=== PATIENT | female | born 1995 | race Caucasian/White ===

== ENCOUNTER 2018-04-08 02:09 | Emergency (ER) | payer BC ==
[~2018-04-08] VITALS: Ht 165.1 cm; Wt 63.6 kg
[2018-04-08 02:16] VITALS: TEMP 96.6
[2018-04-08] MEDS ORDERED: ZOLOFT 100MG100 MG PO (02:20)
[2018-04-08] MEDS ORDERED: XANAX 0.5MG0.5 MG PO (02:20)
[2018-04-08 02:38] LABS: HEMATOCRIT 44.1 % (37.0-47.0); HEMOGLOBIN 14.9 g/dl (12.5-16.0); MEAN CELL VOLUME 95 fl (80.0-100.0); MEAN CORPUSCULAR HEMOGLOBIN 32 pg (27.0-31.0); MEAN CORPUSCULAR HGB CONC 34 g/dl (33.0-37.0); MEAN PLATELET VOLUME 10.2 fl (7.4-10.4); PLATELET COUNT 263 K/mm3 (130-400); RED BLOOD COUNT 4.66 M/mm3 (4.10-5.30); REDCELL DISTRIBUTION WIDTH-CV 12.1 % (11.5-14.5)
[2018-04-08 02:48] LABS: ALBUMIN 5.2 gm/dL (3.5-5.0); BILIRUBIN,TOTAL 0.5 mg/dL (0.0-1.0); CALCIUM 10.3 mg/dL (8.4-10.2); CREATININE, serum 0.83 mg/dL (0.52-1.25); POTASSIUM 3.9 mmol/L (3.4-5.0)
[2018-04-08 03:02] LABS: BAND 6 % (0-10); NEUTROPHILS 64 % (42.0-75.2)
[2018-04-08 03:03] LABS: PLATELET ESTIMATE NORMAL (NORMAL)
[2018-04-08 03:07] LABS: LYMPHOCYTE 24 % (20.0-51.0)
[2018-04-08 04:30] LABS: COLLECTION METHOD CLEAN CATCH
[2018-04-08 04:39] LABS: MUCOUS Present /lpf; PH 5 (5-8); SQUAMOUS EPITHELIAL 0-2 /hpf; URINE APPEARANCE Clear; URINE BACTERIA Rare /hpf; URINE BILIRUBIN Negative (NEGATIVE); URINE BLOOD Negative (NEGATIVE); URINE COLOR Yellow; URINE GLUCOSE Negative (NEGATIVE); URINE KETONE Negative (NEGATIVE); URINE LEUKOCYTE ESTERASE Negative (NEGATIVE); URINE NITRATE Negative (NEGATIVE); URINE PROTEIN(semi-quant) 1+ (NEGATIVE); URINE RBC 0-2 /hpf; URINE UROBILINOGEN Negative (NEGATIVE)
[2018-04-08] MEDS ORDERED: ZOFRAN 4MG T4 MG/TAB PO (05:12)
[2018-04-08 05:17] VITALS: BP 108/70; PULSE 80
[2018-04-08 08:08] LABS: PATHOLOGY DIFF REVIEW OK
== END 2018-04-08 05:26 | disposition home or self-care (01) ==
LOC: COL.ER 02:09
PROVIDERS: Emergency Medicine
DX: S09.90XA Unspecified injury of head, initial encounter (principal); R11.2 Nausea with vomiting, unspecified; R19.7 Diarrhea, unspecified; R55 Syncope and collapse; F32.9 Major depressive disorder, single episode, unspecified; F41.9 Anxiety disorder, unspecified; W19.XXXA Unspecified fall, initial encounter
CPT/HCPCS: J2270; J2405; J7030